=== PATIENT | male | born 1970 | race Caucasian/White ===

== ENCOUNTER 2017-11-20 09:00 | Outpatient (CLI) | payer BC ==
[2017-11-20 12:17] LABS: Hemoglobin 15.6 g/dL (14.0-18.0); Mean Corpuscular HGB CONC 32.7 g/dL (32.0-36.0); Mean Corpuscular Hemoglobin 30.1 pg (27.0-31.0); Mean Corpuscular Volume 92.3 fl (80.0-94.0); Mean Platelet Volume 7.4 fL (7.4-10.4); Platelet Count 233 thou/uL (130-400); RBC Distribution Width 11.9 % (11.5-14.5); Red Blood Cell (RBC) Count 5.19 mill/uL (4.70-6.10); White Blood Cell (WBC) Count 5.1 thou/uL (4.8-10.8)
[2017-11-20 12:42] LABS: Anion Gap 14 mmol/L (10-20); BUN (Urea Nitrogen) 11 mg/dL (8.9-20.6); Calc. Creatinine Clearance 0 mL/min (70-130); Calcium 9.1 mg/dL (7.8-10.44); Carbon Dioxide 24 mmol/L (22-29); Chloride 105 mmol/L (98-107); Estimated GFR-MDRD Greater than 90; Glucose 94 mg/dL (70-105); Potassium 4.5 mmol/L (3.5-5.1); Sodium 138 mmol/L (136-145)
--- NOTE | 2017-11-21 07:19 | EKG ---
Test Reason : Blood Pressure : / mmHG Vent. Rate : 065 BPM Atrial Rate : 065 BPM P-R Int : 150 ms QRS Dur : 120 ms QT Int : 402 ms P-R-T Axes : 035 040 037 degrees QTc Int : 418 ms Normal sinus rhythm Right bundle branch block Abnormal ECG No previous ECGs available Confirmed by MARTHA LOVE, DR. Hankins ([id number]) on 11/21/2017 7:18:59 AM Referred By: WAQAS Confirmed By:DR. Nhi THOMAS MD
== END 2017-11-20 09:01 ==
LOC: LABBT 09:00
PROVIDERS: ATTEND Neurological Surgery
DX: Z01.818 Encounter for other preprocedural examination (principal); M54.16 Radiculopathy, lumbar region
CPT/HCPCS: 80048; 85027; 93005; 93010

== ENCOUNTER 2017-11-23 07:31 | Day surgery (SDC) | payer BC ==
[2017-11-20 11:21] VITALS: BMI 28.8
[2017-11-23] MEDS ORDERED: CEFAZOLIN/Water 2 GM/20 ML SYRINGE ONE (07:44)
[2017-11-23] MEDS ORDERED: HYDROmorphone 0.5 MG/0.5 ML SYRINGE ONE (10:03)
[2017-11-23] MEDS ORDERED: Fentanyl 100 MCG/2 ML VIAL ONE (10:03)
[2017-11-23] MEDS ORDERED: Midazolam HCl 2 mg/2 ml Vial ONE (11:08)
--- NOTE | 2017-11-23 12:13 | OP ---
DATE OF PROCEDURE: 11/23/2017 SURGEON: Chad Mcleod M.D. [employer] INSPECTOR: Dennis. PROCEDURE PERFORMED: Right L5-S1 microdiskectomy. PROCEDURE IN DETAIL: The patient was brought into the operating room, intubated. He was rolled in t he prone position on gel-filled chest rolls. Incision made exposing right L5-S1 and our level was co nfirmed by x-ray. We performed right L5-S1 hemilaminectomy, removed the yellow ligament, identified the right S1 nerve root and beneath it was a bulging and partially extruded disk herniation. This wa s removed in one large fragment and a complete decompression was secured. The wound was then extensi vely irrigated, immaculate hemostasis was secured. Vancomycin powder was applied and the wound was c losed in anatomic layers.
[2017-11-23] MEDS ORDERED: HYDROcodone/Acetaminophen 10/325 mg Tablet ONE (14:47)
[2017-11-23] MEDS ORDERED: Metoclopramide HCl 10 MG/2 ML VIAL ONE (15:38)
[2017-11-23] MEDS ORDERED: Lidocaine 1% PF 5 ML VIAL ONE (15:38)
[2017-11-23] MEDS ORDERED: Ondansetron HCl/PF 4 MG/2 ML Vial ONE (15:38)
[2017-11-23] MEDS ORDERED: Propofol 200 MG/20 ML VIAL ONE (15:38)
[2017-11-23] MEDS ORDERED: Glycopyrrolate 0.2 MG/ML 5 ML SYRINGE ONE (15:38)
[2017-11-23] MEDS ORDERED: Dexamethasone 20 MG/5 ML VIAL ONE (15:38)
[2017-11-23] MEDS ORDERED: Esmolol 100 MG/10 ML VIAL ONE (15:38)
[2017-11-23] MEDS ORDERED: diphenhydrAMINE 50 MG/ML VIAL ONE (15:38)
[2017-11-23] MEDS ORDERED: Ketorolac Tromethamine 30 MG/ML VIAL ONE (15:38)
== END 2017-11-23 15:10 | disposition home or self-care (01) ==
LOC: SDC 07:31
PROVIDERS: ATTEND Neurological Surgery
DX: M54.16 Radiculopathy, lumbar region (principal); K21.9 Gastro-esophageal reflux disease without esophagitis; E03.9 Hypothyroidism, unspecified; Z79.899 Other long term (current) drug therapy; Z90.89 Acquired absence of other organs; Z90.79 Acquired absence of other genital organ(s); Z92.3 Personal history of irradiation
CPT/HCPCS: 76001; J1100; J1170; J1200; J1885; J2001; J2250; J2405; J2704; J2765; J3010; J3370